=== PATIENT | male | born 1990 | race Caucasian/White ===

== ENCOUNTER 2020-09-11 16:31 | Emergency (ER) | payer BC ==
[~2020-09-11] VITALS: Ht 180.3 cm; Wt 85.3 kg
--- OUTSIDE RECORDS SUMMARY | 2020-09-11 16:39 | CCD ---
Author Author [facility] Organization [facility] Address Unknown Phone Unavailable Care Team Providers Care Clinic Supervisor Name Role Phone RING, K RONNY PA Unavailable Unavailable RING, K RONNY PA Unavailable Unavailable RING, K RONNY PA Unavailable Unavailable RING, K RONNY PA Unavailable Unavailable RING, K RONNY PA Unavailable Unavailable RING, K RONNY PA Unavailable Unavailable RING, K RONNY PA Unavailable Unavailable RING, K RONNY PA Unavailable Unavailable RING, K RONNY PA Unavailable Unavailable RING, K RONNY PA Unavailable Unavailable RING, K RONNY PA Unavailable Unavailable RING, K RONNY PA Unavailable Unavailable RING, K RONNY PA Unavailable Unavailable RING, K RONNY PA Unavailable Unavailable RING, K RONNY PA Unavailable Unavailable RING, K RONNY PA Unavailable Unavailable RING, K RONNY PA Unavailable Unavailable RING, K RONNY PA Unavailable Unavailable RING, K RONNY PA Unavailable Unavailable RING, K RONNY PA Unavailable Unavailable Palma, Jing CHARGING PLUG PLACER Unavailable Unavailable Palma, Jing CHARGING PLUG PLACER Unavailable Unavailable Palma, Jing CHARGING PLUG PLACER Unavailable Unavailable Palma, Jing CHARGING PLUG PLACER Unavailable Unavailable Palma, Jing CHARGING PLUG PLACER Unavailable Unavailable Palma, Jing CHARGING PLUG PLACER Unavailable Unavailable Palma, Jing CHARGING PLUG PLACER Unavailable Unavailable Palma, Jing CHARGING PLUG PLACER Unavailable Unavailable Palma, Jnig CHARGING PLUG PLACER Unavailable Unavailable Palma, Jing CHARGING PLUG PLACER Unavailable Unavailable Palma, Jing CHARGING PLUG PLACER Unavailable Unavailable Re-disclosure Warning The records that you are about to access may contain information from federally-assisted alcohol or drug abuse programs. If such information is present, then the following federally mandated warning applies: This information has been disclosed to you from records protected by federal confidentiality rules (42 CFR part 2). The federal rules prohibit you from making any further disclosure of this information unless further disclosure is expressly permitted by the written consent of the person to whom it pertains or as otherwise permitted by 42 CFR part 2. A general authorization for the release of medical or other information is NOT sufficient for this purpose. The Federal rules restrict any use of the information to criminally investigate or prosecute any alcohol or drug abuse patient.The records that you are about to access may contain highly sensitive health information, the redisclosure of which is protected by Article 27-F of the [facility] Public Health law. If you continue you may have access to information: Regarding HIV / AIDS; Provided by facilities licensed or operated by the [facility] Office of Mental Health; or Provided by the [facility] Office for People With Developmental Disabilities. If such information is present, then the following [facility] mandated warning applies: This information has been disclosed to you from confidential records which are protected by state law. State law prohibits you from making any further disclosure of this information without the specific written consent of the person to whom it pertains, or as otherwise permitted by law. Any unauthorized further disclosure in violation of state law may result in a fine or intermediate sentence or both. A general authorization for the release of medical or other information is NOT sufficient authorization for further disc losure. Family History Family Member Name Family Member Gender Family Member Status Date o f Status Description Data Source(s) Unknown Female Encounters Encounter Providers Location Date Indications Data Source(s ) Outpatient Attender: RONNY Castle [facility] 09/11/2020 08:55:00 AM EST [facility] ([facility], [facility]) Outpatient Attender: Jing Castle [facility] 08/04/2019 08:05:00 AM EST [facility] ([facility], [employer]) Medications Medication Brand Name Start Date Product Form Dose Route Admi nistrative Instructions Pharmacy Instructions Status Indications Reaction Description Data Source(s) 90 mcg/actuation 08/04/2019 12:00:00 AM EST HFA aerosol inha ler 8 INHALE 1-2 PUFFS BY MOUTH EVERY 4-6 HOURS NEEDED FOR FOR SHORTNESS OF BREATH INHALE 1-2 PUFFS BY MOUTH EVERY 4-6 HOURS NEEDED FOR FOR SHORTNESS OF BREATH SOLD: 08/04/2019 [facility] benzonatate 100 MG Oral Capsule BENZONATATE 08/04/2019 12:00:00 AM EST capsule 30 TAKE ONE CAPSULE BY MOUTH THREE TIMES A DAY NEEDED FOR COUGH TAKE ONE CAPSULE BY MOUTH THREE TIMES A DAY NEEDED FOR COUGH SOLD: 08/04/2019 [facility] Amoxicillin 875 MG / Clavulanate 125 MG Oral Tablet Am oxicillin/Clavulanate Potassium 08/04/2019 12:00:00 AM EST ORAL active [facility] ([facility]) No Active Medications 08/04/2019 12:00:00 AM EST completed [facility] ([facility]) benzonatate 100 MG Oral Capsule Benzonatate 08/04/2019 12:00:00 AM EST ORAL active [facility] ([facility]) 875-125 mg 08/04/2019 12:00:00 AM EST tablet 20 TAKE ONE TABLET BY MOUTH TWICE A DAY DIRECTED FOR 10 DAYS TAKE ONE TABLET BY MOUTH TWICE A DAY DIRECTED FOR 10 DAYS SOLD: 08/04/2019 [facility] 60 ACTUAT Albuterol 0.09 MG/ACTUAT Metered Dose Inhaler Albu terol Sulfate HFA 08/04/2019 12:00:00 AM EST RESPIRATORY active [facility] ([facility]) Insurance Providers Payer name Policy type / Coverage type Policy ID Covered democrat ID Covered democrat's relationship to lu Policy Lu Plan Information [employer] 302/[phone] [id number] SP [id number] [employer] [place] PPO 302/307 [id number] SP [id number] [place] Commercial [id number] Family Dependen t [id number] [facility] Trad/MX Commercial [id number] Family Dependen t [id number] [id number] [facility] Trad/MX Commercial Family Dependent [place] Trad/[place] Commercial Family Dependent Results ID Date Data Source [id number] 09/11/2020 01:49:00 PM EST [facility] ([facility]) Name Value Range Interpretation Code Description Data Aleta rce(s) Supporting Document(s) C reactive protein [Mass/volume] in Serum or Plasma by High sensitivity method 0.30 mg/dL 0.00-0.30 [facility] ([facility]) Erythrocyte sedimentation rate by 2H Westergren method 2 mm/hr 0-1 5 [facility] ([facility], [facility]) ID Date Data Source [id number] 09/11/2020 01:49:00 PM EST [facility] ([facility]) Name Value Range Interpretation Code Description Data Aleta rce(s) Supporting Document(s) Glucose, Fasting 103 mg/dL 70-100 [facility] ([facility], [facility]) Blood Urea Nitrogen 11 mg/dL 7-18 [facility] ([facility]) Creatinine For GFR 0.98 mg/dL 0.70-1.30 [facility] ([facility]) Glomerular Filtration Rate Laboratory test result [facility] ([facility]) <content>Units are mL/min/1.73 m2</content>
<content></content>
<content>Chronic Kidney Disease Staging per NKF:</content>
<content></content>
<content>Stage I & II GFR >=60 Normal to Mildly Decreased</content>
<content>Stage III GFR 30- 59 Moderately Decreased</content>
<content>Stage IV GFR 15-29 Severely Decreased</content>
<content>Stage V GFR <15 Very Little GFR Left</content>
<content>ESRD GFR <15 on PROCESS LINE OPERATOR</content>
<content></content> Sodium Level 136 meq/L 136-145 [facility] ([facility], [facility]) Potassium Serum 4.5 meq/L 3.5-5.1 [facility] ([facility]) Chloride Level 100 meq/L 98-107 [facility] ([facility]) Anion Gap 9 meq/L 8-16 [facility] ([facility]) Carbon Dioxide Level 27 meq/L 21-32 [facility] ([facility]) Calcium Level 9.5 mg/dL 8.5-10.1 [facility] ([facility], [facility]) Ast/Sgot 32 U/L 7-37 [facility] ([facility]) Alt/SGPT 94 U/L 12-78 [facility] ([facility], [facility]) Alkaline Phosphatase 65 U/L 45-117 [facility] ( [facility] Total Protein 8.1 GM/DL 6.4-8.2 [facility] ([facility], [facility]) Bilirubin,Total 0.4 mg/dL 0.2-1.0 [facility] ([facility], [facility]) Albumin 4.7 GM/DL 3.2-5.2 [facility] ([facility], [facility]) Albumin/Globulin Ratio 1.4 [facility] ([facility], [facility]) ID Date Data Source [id number] 09/11/2020 01:49:00 PM EST [facility] ([facility], [facility]) Name Value Range Interpretation Code Description Data Aleta rce(s) Supporting Document(s) White Blood Count 10.9 10 4.0-10.0 [facility] Red Blood Count 5.05 10 4.30-6.10 [facility] ([facility], [facility]) Hemoglobin 15.6 g/dL 13.5-17.5 [facility]) Hematocrit 44.5 % 42.0-52.0 [facility]) Mean Corpuscular Volume 88.1 fl 80.0-96.0 M EDENT ([facility], [facility]) Mean Corpuscular Hemoglobin 30.9 pg 27.0-33.0 [facility] ([facility], [facility]) Red Cell Distribution Width 12.4 % 11.5-14.5 [facility] ([facility], [facility]) Mean Corpuscular HGB Conc 35.1 g/dL 32.0-36.5 [facility] ([facility], [facility]) Platelet Count, Automated 301 10 150-450 [facility] ([facility], [facility]) Neutrophils % 82.3 % 36.0-66.0 [facility] ([facility], [facility]) Lymph % 10.6 % 24.0-44.0 [facility] ([facility]) Latimer % 6.7 % 0.0-5.0 [facility] ([facility]) Baso % 0.1 % 0.0-1.0 [facility] ([facility]) Eos % 0.0 % 0.0-3.0 [facility] ([facility]) Immature Granulocyte % 0.3 % 0-3.0 [facility] ([facility], [facility]) Nucleated Red Blood Cell % 0.0 % 0-0 MED ENT ([facility], [facility]) Neutrophils # 9.0 10 1.5-8.5 [facility] ([facility], [facility]) Lymph # 1.2 10 1.5-5.0 [facility] ([facility], [facility]) Latimer # 0.7 10 0.0-0.8 [facility] ([facility]) Eos # 0.0 10 0.0-0.5 [facility] ([facility], [facility]) Baso # 0.0 10 0.0-0.2 [facility] ([facility]) ID Date Data Source [id number] 06/29/2020 12:00:00 AM EST [facility] Name Value Range Interpretation Code Description Data Aleta rce(s) Supporting Document(s) SARS-CoV2 Rapid Antigen [facility] and reported by [facility] ID Date Data Source [id number] 06/22/2020 03:35:00 PM EST [facility] Name Value Range Interpretation Code Description Data Aleta rce(s) Supporting Document(s) SARS coronavirus 2 RNA [facility] This lab was ordered by [facility] and reported by [facility]. Procedure Social History Code Duration Value Status Description Data Source(s ) Smoking 09/11/2020 12:00:00 AM EST Patient has never smoked co mpleted Patient has never smoked [facility] ([facility], [facility]) Vital Signs ID Date Data Source UNK Name Value Range Interpretation Code Description Data Source(s) Body mass index (BMI) [Ratio] 24.4 kg/m2 24.4 k g/m2 [facility] ([facility], [facility]) Body height 71 [in_i] 71 [in_i] [facility] ([facility], [facility]) 5'11" Body weight 175.00 [lb_av] 175.00 [lb_av] MEDEN T ([facility], [facility]) Body temperature 98.4 [degF] 98.4 [degF] [facility] ([facility], [facility]) Oxygen saturation in Arterial blood by Pulse oximetry 98 % 98 % [facility] ([facility], [facility]) Respiratory rate 16 /min 16 /min [facility] ( [facility], [facility]) Heart rate 100 /min 100 /min [facility] ([facility], [facility]) Diastolic blood pressure 92 mm[Hg] 92 mm[Hg] [facility] ([facility], [facility]) Systolic blood pressure 130 mm[Hg] 130 mm[Hg] M EDENT ([facility], [facility]) Body mass index (BMI) [Ratio] 23.0 kg/m2 23.0 k g/m2 [facility] ([facility], [facility]) Body height 71 [in_i] 71 [in_i] [facility] ([facility], [facility]) 5'11" Body weight 165.00 [lb_av] 165.00 [lb_av] MEDEN T ([facility], [facility]) Body temperature 99.6 [degF] 99.6 [degF] [facility] ([facility], [facility]) Oxygen saturation in Arterial blood by Pulse oximetry 98 % 98 % [facility] ([facility], [facility]) Respiratory rate 16 /min 16 /min [facility] ( [facility], [facility]) Heart rate 84 /min 84 /min [facility] ([facility], [facility]) Diastolic blood pressure 75 mm[Hg] 75 mm[Hg] [facility] ([facility], [facility]) Systolic blood pressure 114 mm[Hg] 114 mm[Hg] Jaime MURDOCK ([facility], [facility])
--- OUTSIDE RECORDS SUMMARY | 2020-09-11 17:54 | CCD ---
Author Author [facility] Organization [facility] Address Unknown Phone Unavailable Care Team Providers Care Embossing Clerk Name Role Phone RING, K RONNY PA [...] K RONNY PA Unavailable Unavailable Palma, Jing ONLINE MARKETING SPECIALIST Unavailable Unavailable Palma, Jing ONLINE MARKETING SPECIALIST Unavailable Unavailable Palma, Jing ONLINE MARKETING SPECIALIST Unavailable Unavailable Palma, Jing ONLINE MARKETING SPECIALIST Unavailable Unavailable Palma, Jing ONLINE MARKETING SPECIALIST Unavailable Unavailable Palma, Jing ONLINE MARKETING SPECIALIST Unavailable Unavailable Palma, Jing ONLINE MARKETING SPECIALIST Unavailable Unavailable Palma, Jing ONLINE MARKETING SPECIALIST Unavailable Unavailable Palma, Jing ONLINE MARKETING SPECIALIST Unavailable Unavailable Palma, Jing ONLINE MARKETING SPECIALIST Unavailable Unavailable Palma, Jing ONLINE MARKETING SPECIALIST Unavailable Unavailable Re-disclosure Warning The records that [...] is protected by Article 27-F of the [facility] Public Health law. If you continue you may have access to information: Regarding HIV / AIDS; Provided by facilities licensed or operated by the [facility] Office of Mental Health; or Provided by the [facility] Office for People With Developmental Disabilities. If such information is present, then the following [facility] mandated warning applies: This information has been [...] law may result in a fine or shelter sentence or both. A general authorization for the release of medical or other information is NOT sufficient authorization for further disc losure. Family History Family Member Name Family Member Gender Family Member Status Date o f Status Description Data Source(s) Unknown Female Encounters Encounter Providers Location Date Indications Data Source(s ) Outpatient Attender: RONNY [facility] 09/11/2020 08:55:00 AM EST [facility] ([facility], [facility]) Outpatient Attender: Jing [facility] 08/04/2019 08:05:00 AM EST [facility] ([place] [facility]) Medications Medication Brand Name Start Date Product [...] AM EST ORAL active [facility] ([facility]) No Active Medications 08/04/2019 12:00:00 AM EST completed [facility] ([facility]) benzonatate 100 MG Oral Capsule Benzonatate 08/04/2019 12:00:00 AM EST ORAL active [facility] ([facility]) 875-125 mg 08/04/2019 12:00:00 AM EST tablet 20 TAKE ONE TABLET BY MOUTH TWICE A DAY DIRECTED FOR 10 DAYS TAKE ONE TABLET BY MOUTH TWICE A DAY DIRECTED FOR 10 DAYS SOLD: 08/04/2019 [facility] 60 ACTUAT Albuterol 0.09 MG/ACTUAT Metered Dose Inhaler Albu terol Sulfate HFA 08/04/2019 12:00:00 AM EST RESPIRATORY active [facility] ([facility]) Insurance Providers Payer name Policy type / Coverage type Policy ID Covered green party ID Covered green party's relationship to lu Policy Lu Plan Information [place] 302/307 [id number] SP [id number] [place] [place] PPO 302/307 [id number] SP [id number] [place] Tr[place] Commercial [id number] Family Dependen t [id number] [facility] Trad/MX Commercial [id number] [facility]en [id number] [id number] [facility] Trad/MX Commercial Family Dependent BS [place] Trad/[place] Commercial Family Dependent Results ID Date Data Source [id number] 09/11/2020 01:49:00 PM EST [facility] ([facility]) Name Value Range Interpretation Code Description Data Aleta rce(s) Supporting Document(s) C reactive protein [Mass/volume] in Serum or Plasma by High sensitivity method 0.30 mg/dL 0.00-0.30 [facility] ([facility]) Erythrocyte sedimentation rate by 2H Westergren method 2 mm/hr 0-1 5 [facility] ([facility]) ID Date Data Source [id number] 09/11/2020 01:49:00 PM EST [facility] ([facility]) Name Value Range Interpretation Code Description Data Aleta rce(s) Supporting Document(s) Glucose, Fasting 103 mg/dL 70-100 [facility] ([facility], [facility]) Blood Urea Nitrogen 11 mg/dL 7-18 [facility] ([facility]) Creatinine For GFR 0.98 mg/dL 0.70-1.30 [facility] ([facility]) Glomerular Filtration Rate Laboratory test result [facility] ([facility]) <content>Units are mL/min/1.73 m2</content>
<content></content>
<content>Chronic Kidney Disease Staging per NKF:</content>
<content></content>
<content>Stage I & II GFR >=60 Normal to Mildly Decreased</content>
<content>Stage III GFR 30- 59 Moderately Decreased</content>
<content>Stage IV GFR 15-29 Severely Decreased</content>
<content>Stage V GFR <15 Very Little GFR Left</content>
<content>ESRD GFR <15 on TUBE CUTTER</content>
<content></content> Sodium Level 136 meq/L 136-145 [facility] ([facility]) Potassium Serum 4.5 meq/L 3.5-5.1 [facility] ([facility], [facility]) Chloride Level 100 meq/L 98-107 [facility] ([facility]) Anion Gap 9 meq/L 8-16 [facility] ([facility]) Carbon Dioxide Level 27 meq/L 21-32 [facility] ([facility]) Calcium Level 9.5 mg/dL 8.5-10.1 [facility] ([facility], [facility]) Ast/Sgot 32 U/L 7-37 [facility] ([facility], [facility]) Alt/SGPT 94 U/L 12-78 [facility] ([facility], [facility]) Alkaline Phosphatase 65 U/L 45-117 [facility] ( [facility] Total Protein 8.1 GM/DL 6.4-8.2 [facility] ([facility], [facility]) Bilirubin,Total 0.4 mg/dL 0.2-1.0 [facility] ([facility], [facility]) Albumin 4.7 GM/DL 3.2-5.2 [facility] ([facility], [facility]) Albumin/Globulin Ratio 1.4 [facility] ([facility], [facility]) ID Date Data Source [id number] 09/11/2020 01:49:00 PM EST [facility] ([facility], [facility]) Name Value Range Interpretation Code Description Data Aleta rce(s) Supporting Document(s) White Blood Count 10.9 10 4.0-10.0 [facility] Red Blood Count 5.05 10 4.30-6.10 [facility] ([facility], [facility]) Hemoglobin 15.6 g/dL 13.5-17.5 [facility] ([facility], [facility]) Hematocrit 44.5 % 42.0-52.0 [facility] ([facility]) Mean Corpuscular Volume 88.1 fl 80.0-96.0 M EDENT ([facility], [facility]) Mean Corpuscular Hemoglobin 30.9 pg 27.0-33.0 [facility] ([facility], [facility]) Red Cell Distribution Width 12.4 % 11.5-14.5 [facility] ([facility], [facility]) Mean Corpuscular HGB Conc 35.1 g/dL 32.0-36.5 [facility] ([facility], [facility]) Platelet Count, Automated 301 10 150-450 [facility] ([facility], [facility]) Neutrophils % 82.3 % 36.0-66.0 [facility] ([facility], [facility]) Lymph % 10.6 % 24.0-44.0 [facility] ([facility]) [place] % 6.7 % 0.0-5.0 [facility] ([facility]) Baso % 0.1 % 0.0-1.0 [facility] ([facility]) Eos % 0.0 % 0.0-3.0 [facility] ([facility]) Immature Granulocyte % 0.3 % 0-3.0 [facility] ([facility]) Nucleated Red Blood Cell % 0.0 % 0-0 MED [facility] ([facility], [facility]) Neutrophils # 9.0 10 1.5-8.5 [facility] ([facility]) Lymph # 1.2 10 1.5-5.0 [facility] ([facility]) [place] # 0.7 10 0.0-0.8 [facility] ([facility]) Eos # 0.0 10 0.0-0.5 [facility] ([facility], [facility]) Baso # 0.0 10 0.0-0.2 [facility] ([facility]) ID Date Data Source [id number] 06/29/2020 12:00:00 AM EST [facility] Name Value Range Interpretation Code Description Data Aleta rce(s) Supporting Document(s) SARS-CoV2 Rapid Antigen [facility] and reported by [facility]. ID Date Data Source [id number] 06/22/2020 03:35:00 PM EST [facility] Name Value Range Interpretation Code Description Data Aleta rce(s) Supporting Document(s) SARS coronavirus 2 RNA [facility] This lab was ordered by [facility] and reported by [facility]. Procedure Social History Code Duration Value Status Description Data Source(s ) Smoking 09/11/2020 12:00:00 AM EST Patient has never smoked co mpleted Patient has never smoked [facility] ([facility], [facility]) Vital Signs ID Date Data Source UNK Name Value Range Interpretation Code Description Data Source(s) Body mass index (BMI) [Ratio] 24.4 kg/m2 24.4 k g/m2 [facility] ([facility]) Body height 71 [in_i] 71 [in_i] [facility] ([facility], [facility]) 5'11" Body weight 175.00 [lb_av] 175.00 [lb_av] MED[facility] T ([facility], [facility]) Body temperature 98.4 [degF] 98.4 [degF] [facility] ([facility], [facility]) Oxygen saturation in Arterial blood by Pulse oximetry 98 % 98 % [facility] ([facility], [facility]) Respiratory rate 16 /min 16 /min [facility] ( [facility], [facility]) Heart rate 100 /min 100 /min [facility] ([facility]) Diastolic blood pressure 92 mm[Hg] 92 mm[Hg] [facility] ([facility], [facility]) Systolic blood pressure 130 mm[Hg] 130 mm[Hg] M EDENT ([facility], [facility]) Body mass index (BMI) [Ratio] 23.0 kg/m2 23.0 k g/m2 [facility] ([facility], [facility]) Body height 71 [in_i] 71 [in_i] [facility] ([facility], [facility]) 5'11" Body weight 165.00 [lb_av] 165.00 [lb_av] MED[facility] T ([facility], [facility]) Body temperature 99.6 [degF] 99.6 [degF] [facility] ([facility], [facility]) Oxygen saturation in Arterial blood by Pulse oximetry 98 % 98 % [facility] ([facility]) Respiratory rate 16 /min 16 /min [facility] ( [facility]) Heart rate 84 /min 84 /min [facility] ([facility], [facility]) Diastolic blood pressure 75 mm[Hg] 75 mm[Hg] [facility] ([facility]) Systolic blood pressure 114 mm[Hg] 114 mm[Hg] Jaime MURDOCK ([facility], [facility])
[2020-09-11] MEDS ORDERED: SIMETHICONE 80 MG CHEW TAB PO STA (18:14)
[2020-09-11] MEDS ORDERED: DICYCLOMINE 10 MG CAP PO ONE (18:15)
[2020-09-11] MEDS: GASTROGRAFIN SOLUTION 30ML PO SCH ×2 (18:55→19:26)
[2020-09-11] MEDS ORDERED: ISOVUE-370 76% 100ML VIAL As Ordered ONE (19:38)
--- NOTE | 2020-09-11 21:16 | REPVR ---
PROCEDURE INFORMATION: Exam: CT Abdomen And Pelvis With Contrast Exam date and time: 09/11/2020 8:29 PM Age: 30 years old Clinical indication: Abdominal pain; Localized; Left lower quadrant (llq); Additional info: Elev wbc, bloody stool, llq abd tenderness TECHNIQUE: Imaging protocol: Computed tomography of the abdomen and pelvis with contrast. Radiation optimization: All CT scans at this facility use at least one of these dose optimization techniques: automated exposure control; mA and/or kV adjustment per patient size (includes targeted exams where dose is matched to clinical indication); or iterative reconstruction. Contrast material: ISOVUE 370; Contrast volume: 100 ml; Contrast route: INTRAVENOUS (IV); COMPARISON: No relevant prior studies available. FINDINGS: Lungs: The imaged portions of the lung bases are clear. The lungs were not fully imaged. Heart: No cardiomegaly or pericardial effusion. Diaphragm: Intact. Liver: The attenuation of the liver is lower compared to the spleen, which can be seen with fatty liver infiltration. No liver lesion is seen. The contour of the liver is smooth. No hepatomegaly is noted. Gallbladder and bile ducts: No calcified gallstones are noted. No gallbladder wall thickening, pericholecystic fluid, or pericholecystic inflammatory changes are identified. No dilation of the bile ducts is noted. No calcified stones are seen in the common bile duct. Pancreas: Normal. No dilation of the main pancreatic duct is noted. There is no inflammatory fat stranding around the pancreas to suggest acute pancreatitis. Spleen: Normal. No splenomegaly is noted. Adrenal glands: Normal. No adrenal mass is noted. Kidneys and ureters: The kidneys are normal in appearance. No renal lesion is noted. No stones are noted in the kidneys or ureters. There is no hydronephrosis or hydroureter. There are no wedge-shaped areas of low attenuation in the kidneys to suggest pyelonephritis. There is no renal abscess or perinephric fluid collection. Stomach and bowel: The stomach and small bowel are unremarkable. There is thickening of the wall of the descending colon with associated pericolonic inflammatory fat stranding, which are findings compatible with a colitis. No perforated viscus, fistula, or bowel obstruction is noted. Appendix: Normal. There is no evidence for appendicitis. Intraperitoneal space: No free air. No ascites. No abscess. Retroperitoneal space: No fluid collection. No mass. Vasculature: The abdominal aorta is patent, normal in caliber, and there is no dissection. The iliac arteries, common femoral arteries, renal arteries, celiac artery, superior mesenteric artery, and inferior mesenteric artery are patent. The portal veins, splenic vein, superior mesenteric vein, inferior mesenteric vein, and renal veins are patent. Lymph nodes: No enlarged lymph nodes. Urinary bladder: The partially distended urinary bladder is unremarkable. No stones or masses are seen in the bladder. Reproductive: The prostate gland and seminal vesicles are unremarkable. Bones/joints: There is no fracture or dislocation. No suspicious osteolytic or osteoblastic lesion. Soft tissues: There is a small fat containing umbilical hernia. IMPRESSION: Colitis involving the descending colon. No perforated viscus, fistula, or abscess. Electronically signed by: Silverio Mcarthur On 09/11/2020 21:16:02 PM
[2020-09-11 22:14] VITALS: BP 140/90
[2020-09-11] MEDS ORDERED: CIPR-249 PO (22:14)
[2020-09-11] MEDS ORDERED: SIME180C PO (22:15)
[2020-09-11] MEDS ORDERED: DICY10CA13 PO (22:15)
[2020-09-11] MEDS ORDERED: CIPROFLOXACIN 500MG TABLET PO ONE (22:30)
== END 2020-09-11 22:27 | disposition home or self-care (01) ==
LOC: M ED 16:31
DX: K52.9 Noninfective gastroenteritis and colitis, unspecified (principal); K92.1 Melena
CPT/HCPCS: 74177; 99284; Q9963; Q9967

== ENCOUNTER → 2020-09-11 | Outpatient (CLI) | payer BC ==
[~2020-09-11] MED LIST: CIPR-249 PO; DICY10CA13 PO; SIME180C PO
[2020-09-11 14:01] LABS: BASO % 0.1 % (0.0-1.0); HEMATOCRIT 44.5 % (42.0-52.0); HEMOGLOBIN 15.6 g/dl (13.5-17.5); LYMPH # 1.2 10^3/uL (1.5-5.0); LYMPH % 10.6 % (24.0-44.0); MEAN CORPUSCULAR HEMOGLOBIN 30.9 pg (27.0-33.0); MEAN CORPUSCULAR HGB CONC 35.1 g/dl (32.0-36.5); MEAN CORPUSCULAR VOLUME 88.1 fl (80.0-96.0); MONO # 0.7 10^3/uL (0.0-0.8); MONO % 6.7 % (0.0-5.0); NEUTROPHILS % 82.3 % (36.0-66.0); PLATELET COUNT, AUTOMATED 301 10^3/uL (150-450); RED BLOOD COUNT 5.05 10^6/uL (4.30-6.10); WHITE BLOOD COUNT 10.9 10^3/uL (4.0-10.0)
[2020-09-11 14:20] LABS: ERYTHROCYTE SEDIMENTATION RATE 2 mm/hr (0-15)
[2020-09-11 14:26] LABS: ALBUMIN 4.7 GM/DL (3.2-5.2); ALT/SGPT 94 U/L (12-78); BILIRUBIN,TOTAL 0.4 MG/DL (0.2-1.0); BLOOD UREA NITROGEN 11 MG/DL (7-18); CALCIUM LEVEL 9.5 MG/DL (8.5-10.1); CARBON DIOXIDE LEVEL 27 MEQ/L (21-32); CHLORIDE LEVEL 100 MEQ/L (98-107); CREATININE FOR GFR 0.98 MG/DL (0.70-1.30); GLOMERULAR FILTRATION RATE > 60.0 (>60); GLUCOSE, FASTING 103 MG/DL (70-100); POTASSIUM SERUM 4.5 MEQ/L (3.5-5.1); SODIUM LEVEL 136 MEQ/L (136-145); TOTAL PROTEIN 8.1 GM/DL (6.4-8.2)
== END ==
LOC: M LAB 13:31
PROVIDERS: ATTEND Physician Assistant
DX: R19.7 Diarrhea, unspecified (principal); R10.30 Lower abdominal pain, unspecified

== ENCOUNTER → 2020-09-26 | Outpatient (REF) | payer BC ==
[2020-09-26 19:06] LABS: FOLATE 17.7 NG/ML
== END ==
LOC: M LAB REF 16:14
PROVIDERS: ATTEND Internal Medicine
DX: E63.9 Nutritional deficiency, unspecified (principal); K62.89 Other specified diseases of anus and rectum

== ENCOUNTER → 2020-09-27 | Outpatient (REF) | payer BC | LOC: M LAB REF 17:16 | PROVIDERS: ATTEND Internal Medicine | DX: K62.89 Other specified diseases of anus and rectum (principal) ==

== ENCOUNTER → 2020-12-18 | Outpatient (CLI) | payer BC ==
[~2020-12-18] MED LIST changes: -SIME180C PO; +SIME180C25 PO
== END ==
LOC: M LABSMTC 09:37
PROVIDERS: ATTEND Anesthesiology
DX: Z01.812 Encounter for preprocedural laboratory examination (principal); Z20.822 Contact with and (suspected) exposure to COVID-19

== ENCOUNTER 2020-12-23 06:33 | Day surgery (SDC) | payer BC ==
[~2020-12-23] VITALS: Ht 180.3 cm; Wt 85.3 kg
[~2020-12-23 06:33] MED LIST changes: +NS 1,000 ML IV ONE
[2020-12-23] MEDS ORDERED: LIDOCAINE 2% 100MG/5ML SDV (FOR ANES.) As Ordered ONE (07:14)
[2020-12-23] MEDS ORDERED: propofoL 200 MG/20 ML VIAL As Ordered ONE ×2 (07:14→07:47)
--- NOTE | 2020-12-23 08:15 | ROOR ---
Patient Name: Jose Martin Arreola Procedure Date: 12/23/2020 7:30 AM Date of : 1990 Age: 30 Room: [facility] Gender: Male Note Status: Finalized Procedure: Colonoscopy Indications: Hematochezia Providers: Mich Gar MD Referring MD: Kelsey OLIVEIRA MD Requesting Provider: Medicines: Monitored Anesthesia Care Complications: No immediate complications. Procedure: Pre-Anesthesia Assessment: - Prior to the procedure, a History and Physical was performed, and patient medications and allergies were reviewed. The patient is competent. The risks and benefits of the procedure and the sedation options and risks were discussed with the patient. All questions were answered and informed consent was obtained. Patient identification and proposed procedure were verified by the physician, the nurse and the anesthesiologist in the procedure room. Mental Status Examination: alert and oriented. Airway Examination: normal oropharyngeal airway and neck mobility. Respiratory Examination: clear to auscultation. CV Examination: normal. Prophylactic Antibiotics: The patient does not require prophylactic antibiotics. Prior Anticoagulants: The patient has taken no previous anticoagulant or antiplatelet agents. ASA Grade Assessment: II - A patient with mild systemic disease. After reviewing the risks and benefits, the patient was deemed in satisfactory condition to undergo the procedure. The anesthesia plan was to use monitored anesthesia care (MAC). Immediately prior to administration of medications, the patient was re-assessed for adequacy to receive sedatives. The heart rate, respiratory rate, oxygen saturations, blood pressure, adequacy of pulmonary ventilation, and response to care were monitored throughout the procedure. The physical status of the patient was re-assessed after the procedure. The Colonoscope was introduced through the anus and advanced to the terminal ileum, with identification of the appendiceal orifice and IC valve. The colonoscopy was performed without difficulty. The patient tolerated the procedure well. The quality of the bowel preparation was good. The terminal ileum, ileocecal valve, appendiceal orifice, and rectum were photographed. Scope insertion time was 2 minutes. Scope withdrawal time was 8 minutes. The total duration of the procedure was 10 minutes. Findings: The perianal and digital rectal examinations were normal. The terminal ileum appeared normal. Normal mucosa was found in the entire colon. Biopsies for histology were taken with a cold forceps from the right colon, left colon and rectosigmoid colon for evaluation of microscopic colitis. Verification of patient identification for the specimen was done by the physician and nurse using the patient's name, date and medical record number. Estimated blood loss was minimal. Non-bleeding external and internal hemorrhoids were found during retroflexion. The hemorrhoids were medium-sized. Impression: - The examined portion of the ileum was normal. - Normal mucosa in the entire examined colon. Biopsied. - Non-bleeding external and internal hemorrhoids. Recommendation: - Patient has a contact number available for emergencies. The signs and symptoms of potential delayed complications were discussed with the patient. Return to normal activities tomorrow. Written discharge instructions were provided to the patient. - High fiber diet. - Use fiber, for example Citrucel, Fibercon, Konsyl or Metamucil. - Continue present medications. - Await pathology results. - Repeat colonoscopy at age 51 for screening purposes. - Telephone GI clinic for pathology results in 2 weeks. - Return to primary care physician. Procedure Code(s): --- Professional --- 94377, Colonoscopy, flexible; with biopsy, single or multiple Diagnosis Code(s): --- Professional --- K64.8, Other hemorrhoids K92.1, Melena (includes Hematochezia) CPT copyright 2019 [employer]. All rights reserved. The codes documented in this report are preliminary and upon braille coder review may be revised to meet current compliance requirements. Mich Gar MD Mich Gar MD 12/23/2020 8:14:53 AM Electronically signed by Mich Gar MD Number of Addenda: 0 Note Initiated On: 12/23/2020 7:30 AM Estimated Blood Loss: Estimated blood loss was minimal.
[2020-12-23 08:19] VITALS: BP 127/86
== END 2020-12-23 08:21 | disposition home or self-care (01) ==
LOC: M OPP 06:33
PROVIDERS: ATTEND Internal Medicine Gastroenterology
DX: K63.89 Other specified diseases of intestine (principal); K64.8 Other hemorrhoids; K92.1 Melena

== ENCOUNTER → 2025-04-30 | Outpatient (CLI) | payer BC ==
[~2025-04-30] MED LIST changes: +DICY-61 PO; -DICY10CA13 PO; +E-Z-GAS II EFFERVESCENT PACKET (SODIUM BICARB./CITRIC ACID/SIMETHICONE) As Ordered ONE; +E-Z-HD 98% w/w 340 GM SUSP BTL As Ordered ONE; +E-Z-PAQUE 96% w/w SUSP 176 GM BTL As Ordered ONE; -NS 1,000 ML IV ONE; -SIME180C25 PO; +SIME1CAP4 PO
== END ==
LOC: M RAD 08:39
PROVIDERS: ATTEND Physician Assistant Medical
DX: R13.10 Dysphagia, unspecified (principal)